=== PATIENT | male | born 1995 | race Caucasian/White ===

== ENCOUNTER → 2017-02-22 | Outpatient (CLI) | payer OTHER ==
--- NOTE | 2017-02-22 10:23 | RADIOLOGY REPORT (SQ) ---
EXAM DESCRIPTION: U/S RETROPERITON (RENAL/AORTA); U/S LTD DUPLEX ART/JOSUÉ FLOW COMPLETED DATE/TIME: 02/22/2017 8:50 am REASON FOR STUDY: HTN/DIANE I70.1 ATHEROSCLEROSIS OF RENAL ARTERY COMPARISON: None. TECHNIQUE: Realtime and static grayscale images acquired. Selected color Doppler, velocities and spe ctral images recorded. LIMITATIONS: Midline bowel gas, renal artery origins off the aorta were difficult to visualize FINDINGS: RIGHT KIDNEY: RENAL ARTERY VELOCITIES: 106 cm/sec. Segmental artery velocity 52 cm/sec. RENAL VEIN: Color doppler flow present, patent. VELOCITY RATIO: 0.8. There is subtle blunting of the right renal artery waveforms. Delayed upstroke . Proximal renal artery stenosis may be present. Please consider follow-up CTA or MRA for further e valuation KIDNEY: Normal size, 10 cm in length. No significant pathology. LEFT KIDNEY: RENAL ARTERY VELOCITIES: 88 cm/sec. Segmental artery velocity 15 cm/sec. RENAL VEIN: Color doppler flow present, patent. VELOCITY RATIO: 0.6. Normal waveforms. KIDNEY: Normal size, 10.2 cm in length. No significant pathology. BLADDER: Normal. OTHER: No other significant finding. IMPRESSION: Normal size kidneys with normal cortical thickness and echogenicity. No hydronephrosis. Unremarkable urinary bladder Mild blunting of the systolic peak right renal artery waveform, mild delay in the upstroke. Findings could indicate more proximal renal artery stenosis. Consider CTA or MRA for further evaluation. COMMENT: NORMAL RENAL ARTERY/AORTA VELOCITY RATIO IS LESS THAN OR EQUAL TO 3.5. TECHNICAL DOCUMENTATION: JOB ID: [id number] [employer]- All Rights Reserved
== END ==
LOC: RAD 07:40
PROVIDERS: ATTEND Obstetrics & Gynecology
DX: I70.1 Atherosclerosis of renal artery (principal)
CPT/HCPCS: 76770; 93976

== ENCOUNTER → 2017-05-06 | Outpatient (CLI) | payer OTHER ==
--- NOTE | 2017-05-06 08:50 | RADIOLOGY REPORT (SQ) ---
EXAM DESCRIPTION: MRA ABDOMEN WITHOUT COMPLETED DATE/TIME: 05/06/2017 7:42 am REASON FOR STUDY: HTN (I10) I10 ESSENTIAL (PRIMARY) HYPERTENSION COMPARISON: None. TECHNIQUE: Coronal and Axial imaging with T1 and T2 weighting through the kidneys. Serial contrast e nhanced imaging in the coronal and axial planes. 3-D MIPs performed at the work station. CONTRAST TYPE AND DOSE: None. RENAL FUNCTION: Not applicable. LIMITATIONS: None. FINDINGS: KIDNEYS: Kidneys are of normal size and functionality. OTHER ABDOMINAL ORGANS: No significant finding. BONY STRUCTURES: No significant finding as visualized. VASCULAR STRUCTURES: No significant finding. RIGHT RENAL ARTERY: A single renal artery. Normal without evidence for stenosis. LEFT RENAL ARTERY: A single renal artery. Normal without evidence for stenosis. AORTA, SMA, CELIAC AXIS AND ILIAC ARTERIES: No significant finding or stenosis. OTHER: No other significant finding. IMPRESSION: No evidence of renal artery stenosis. TECHNICAL DOCUMENTATION: JOB ID: [id number] [employer]- All Rights Reserved Reading location - IP/workstation name: [email or web address]
== END ==
LOC: RAD 06:58
PROVIDERS: ATTEND Internal Medicine Nephrology
DX: I10 Essential (primary) hypertension (principal)
CPT/HCPCS: C8901

== ENCOUNTER → 2017-05-23 | Outpatient (CLI) | payer OTHER ==
[2017-05-25 09:38] LABS: NORMETANEPHRINE 49 pg/mL (0-145)
[2017-05-25 17:44] LABS: METANEPHRINE 27 pg/mL (0-62)
== END ==
LOC: LAB 08:15
PROVIDERS: ATTEND Internal Medicine Nephrology
DX: I10 Essential (primary) hypertension (principal)
CPT/HCPCS: 36415; 82533; 83835